=== PATIENT | male | born 1975 | race American Indian/Alaskan Native ===

== ENCOUNTER 2017-12-01 19:53 | Emergency (ER) | payer SELFPAY ==
[2017-12-01 20:03] VITALS: BP 136/81
[2017-12-01] MEDS ORDERED: TYLENOL PO ONE (20:15)
[2017-12-01 20:28] LABS: Hematocrit 44.7 % (35.5-45.6); Hemoglobin 15.2 gm/dl (11.8-15.2); Mean Corpuscular HGB Conc 34 % (32-34); Mean Corpuscular Hemoglobin 32 pg (28-32); Mean Corpuscular Volume 94 fl (84-94); Platelet Count 283 K/mm3 (140-440); Red Blood Count 4.77 M/mm3 (3.65-5.03)
[2017-12-01 20:36] LABS: BUN/Creatinine Ratio 8; Blood Urea Nitrogen 9 mg/dL (9-20); Calcium 9.2 mg/dL (8.4-10.2); Hemolysis Index 5
[2017-12-01 21:11] LABS: Band Neutrophils # (Manual) 1.6 K/mm3; Basophils % (Manual) 0 % (0.0-1.8); Total Cells Counted 100
[2017-12-01 21:12] LABS: Anisocytosis 1+; Platelet Estimate Consistent w Auto
--- NOTE | 2017-12-01 21:17 | Emergency Department Report ---
ED Eye Problem HPI - General Chief complaint: Eye Problems Stated complaint: SWELLING RIGHT EYE,JOINT PAIN Time Seen by Provider: 12/01/17 21:17 Source: patient Mode of arrival: Ambulatory Limitations: No Limitations - History of Present Illness Initial comments: Patient presented right facial swelling near the medial aspect of the right eye. He said this has been ongoing for 2 months. He has been giving Bactrim for a week without any relief. Instead the swelling is getting bigger. He also complaining of fever and chills. Patient denies any trauma today to the face. chief complaint: vision change -: Gradual, month(s) (two) Location: right eye Place: home If Injury: none Eye Symptoms: blurry vision Severity: severe Severity scale (0 -10): 10 If Pain, Quality: sharp Consistency: constant Associated Symptoms: fever Treatments Prior to Arrival: none - Related Data Patient Tetanus UTD: No (Will give Tdap today in the ED.) Allergies Allergy/AdvReac Type Severity Reaction Status Date / Time No Known Allergies Allergy Verified 12/01/17 21:24 ED Review of Systems ROS: Stated complaint: SWELLING RIGHT EYE,JOINT PAIN Other details as noted in HPI Comment: All other systems reviewed and negative Constitutional: chills, fever Eyes: eye pain, vision change ENT: denies: ear pain, throat pain Respiratory: denies: cough, shortness of breath Cardiovascular: denies: chest pain, palpitations, dyspnea on exertion Endocrine: no symptoms reported Gastrointestinal: denies: abdominal pain, nausea, vomiting, diarrhea Genitourinary: denies: urgency, dysuria, frequency Musculoskeletal: denies: back pain, joint swelling Skin: denies: rash, lesions Neurological: denies: headache, weakness, numbness Psychiatric: denies: anxiety, depression Hematological/Lymphatic: denies: easy bleeding, easy bruising ED Past Medical Hx - Past Medical History Hx Arthritis: Yes (Rheumatoid) Additional medical history: LUPUS - Surgical History Past Surgical History?: No - Social History Smoking Status: Current Every Day Smoker Substance Use Type: None ED Physical Exam - General Limitations: No Limitations General appearance: alert, in no apparent distress - Head Head exam: Present: atraumatic, normocephalic, normal inspection - Eye Eye exam: Present: normal appearance, PERRL, EOMI, other (Right facial swelling at the medial aspect of the right eye with redness and warmth concerning for an abscess.) Pupils: Present: normal accommodation - ENT ENT exam: Present: normal exam, normal orophraynx, mucous membranes moist - Neck Neck exam: Present: normal inspection, full ROM. Absent: tenderness, meningismus - Respiratory Respiratory exam: Present: normal lung sounds bilaterally. Absent: respiratory distress, wheezes, rales, rhonchi, stridor - Cardiovascular Cardiovascular Exam: Present: normal rhythm, tachycardia, normal heart sounds - GI/Abdominal GI/Abdominal exam: Present: soft, normal bowel sounds. Absent: distended, tenderness, guarding, rebound, rigid - Extremities Exam Extremities exam: Present: normal inspection, full ROM, normal capillary refill. Absent: tenderness - Back Exam Back exam: Present: normal inspection, full ROM. Absent: tenderness - Neurological Exam Neurological exam: Present: alert, oriented X3, CN II-XII intact - Psychiatric Psychiatric exam: Present: normal affect, normal mood - Skin Skin exam: Present: warm, dry, intact, normal color. Absent: rash ED Course Vital Signs 12/01/17 12/01/17 19:59 20:06 Temperature 100.3 F H Pulse Rate 123 H 124 H Respiratory 22 Rate Blood Pressure 136/81 136/81 O2 Sat by Pulse 100 100 Oximetry - Reevaluation(s) Reevaluation #1: 12/01/17 22:48 I consulted the ENT surgeon at [facility] Dr Faustin. He recommended transferring the patient to [facility] emergency room for further evaluation and management. The transfer is necessary because there is no ENT Surgeon or [employer] salesperson at [facility] today. ED Medical Decision Making - Lab Data Result diagrams: 12/01/17 20:16 12/01/17 20:16 - Radiology Data Radiology results: report reviewed, image reviewed Sepsis. Right facial swelling. Right facial abscess. Critical Care Time: Yes Critical care time in (mins) excluding proc time.: 40 Critical care attestation.: If time is entered above; I have spent that time in minutes in the direct care of this critically ill patient, excluding procedure time. ED Disposition Clinical Impression: Cellulitis and abscess of face Sepsis Qualifiers: Sepsis type: sepsis due to unspecified organism Qualified Code(s): A41.9 - Sepsis, unspecified organism Dacrocystitis Qualifiers: Laterality: right Qualified Code(s): H04.301 - Unspecified dacryocystitis of right lacrimal passage Disposition: DC/TX- [facility]M GEN HOSP IP Is pt being admited?: No Does the pt Need Aspirin: No Condition: Serious Referrals: PRIMARY CARE, [Primary Care Provider] - 3-5 Days Time of Disposition: 22:25
[2017-12-01] MEDS ORDERED: CLEOCIN 900 MG/50 mL 900 MG/50 ML BAG IV ONE (21:29)
[2017-12-01] MEDS ORDERED: NACL 0.9% 1000 ML 1,000 ML IV ONE ×2 (21:29)
[2017-12-01] MEDS ORDERED: DILAUDID IV ONE (21:34)
[2017-12-01] MEDS ORDERED: ZOFRAN IV ONE (21:35)
[2017-12-01] MEDS ORDERED: BOOSTRIX IM ONE (21:48)
[2017-12-01 22:19] LABS: INR 0.91 (0.87-1.13)
[2017-12-01 22:20] LABS: Partial Thromboplastin Time 23.2 Sec. (24.2-36.6)
[2017-12-01 22:25] LABS: Alanine Aminotransferase 21 units/L (7-56); Albumin 4.4 g/dL (3.9-5)
--- NOTE | 2017-12-01 22:29 | Cat Scan Report ---
FINAL REPORT PROCEDURE: CT HEAD/BRAIN W CON TECHNIQUE: Computerized tomography of the head was performed following the IV injection of iodinated nonionic contrast. HISTORY: facial abscess COMPARISON: No prior studies are available for comparison. TECHNICAL QUALITY: Satisfactory. FINDINGS: Skull base, calvarium, and scalp: Normal . Paranasal sinuses: The visualized paranasal sinuses are clear. Cerebellum and brainstem: No evidence of hemorrhage, ischemia or mass . Cerebrum: No evidence of hemorrhage, ischemia or mass . Ventricles: Normal in size and morphology for the patient's age . Vasculature: Normal. Other: There is evidence of a well-defined cystic lesion measuring 3.1 x 2.1 x 2.2 centimeters inferomedial to the anterior right eyeball involving the medial portion of lower eyelid associated with moderate degree surrounding soft tissue induration.. IMPRESSION: Impression No acute intracranial abnormality Right anteromedial orbital cystic lesion most likely represents an abscess secondary to nasal equal duct obstruction..
[2017-12-01 22:33] LABS: Bilirubin,Direct < 0.2 mg/dL (0-0.2)
--- NOTE | 2017-12-01 22:40 | Cat Scan Report ---
FINAL REPORT PROCEDURE: CT FACIAL BONES W CON TECHNIQUE: Computerized tomography of the facial bones and soft tissues with axial and coronal sections was performed from the cranial aspect of the frontal sinuses to the caudal portion of the mandible following the IV injection of iodinated nonionic contrast. HISTORY: Right facial abscess COMPARISON: No prior studies are available for comparison. FINDINGS: Bones: No significant abnormality. Paranasal sinuses: Mild degree mucosal thickening is noted involving bilateral maxillary sinuses. Mucoid secretions are noted in the right sphenoid sinus.. Soft tissues: There is evidence of a well-defined cystic lesion measuring 3.1 x 2.1 x 2.2 centimeters inferomedial to the anterior right eyeball involving the medial portion of lower eyelid associated with moderate degree surrounding soft tissue induration... Other: Adenoid hypertrophy is noted.. IMPRESSION: Cystic lesion involving the anterior portion of right medial orbit and right lower eyelid most likely represents an abscess secondary to nasolacrimal duct obstruction. Adenoid hypertrophy Right sphenoid and bilateral maxillary sinusitis
== END 2017-12-01 23:23 | disposition short-term general hospital (02) ==
LOC: ED 19:53
DX: A41.9 Sepsis, unspecified organism (principal); L03.211 Cellulitis of face; L02.01 Cutaneous abscess of face; H04.301 Unspecified dacryocystitis of right lacrimal passage; F17.200 Nicotine dependence, unspecified, uncomplicated; M06.80 Other specified rheumatoid arthritis, unspecified site
CPT/HCPCS: 36415; 70460; 70487; 80048; 80074; 82140; 85007; 85025; 85610; 85730; 87040; 90471; 90715; 96365; 96375; 99291; J1170; J2405; J7030; Q9967

== ENCOUNTER 2020-12-13 09:50 | Outpatient (CLI) | payer OTHER ==
--- NOTE | 2020-12-13 10:58 | XRay Report ---
LUMBAR SPINE 5 VIEWS INDICATION: Back pain. COMPARISON: No relevant prior imaging study available. FINDINGS: VERTEBRAE: No acute fracture. Normal alignment. DISC SPACES: No significant abnormality. FACET JOINTS: No significant abnormality. SOFT TISSUES: There is moderate aortoiliac atherosclerosis. No other significant abnormality. ADDITIONAL FINDINGS: No additional significant findings. IMPRESSION: No significant abnormality of the lumbar spine. Signer Name: Graham Dumont MD Signed: 12/13/2020 10:53 AM Workstation Name: [id number]
== END 2020-12-13 09:51 | disposition home or self-care (01) ==
LOC: XRAY 09:50
PROVIDERS: ATTEND Internal Medicine
DX: Z02.71 Encounter for disability determination (principal); M47.816 Spondylosis without myelopathy or radiculopathy, lumbar region
CPT/HCPCS: 72110